=== PATIENT | female | born 1955 | race Two or more races ===

== ENCOUNTER 2020-02-28 10:03 | Outpatient (CLI) | payer OTHER | END 2020-02-28 10:05 | disposition home or self-care (01) | LOC: NUCLEAR 10:03 | PROVIDERS: ATTEND Internal Medicine | DX: I87.2 Venous insufficiency (chronic) (peripheral) (principal); I73.9 Peripheral vascular disease, unspecified ==

== ENCOUNTER 2023-08-18 09:19 | Outpatient (CLI) | payer OTHER ==
[~2023-08-18 09:19] MED LIST: AMLODIPINE BESYL5 MG; ATORVASTATIN CA10 MG; DOLOGESIC-DF 51 EACH PO; ELIQUIS5 MG; INDAPAMIDE1.25 MG
== END 2023-08-18 09:23 | disposition home or self-care (01) ==
LOC: NUCLEAR 09:19
PROVIDERS: ATTEND Internal Medicine Cardiovascular Disease
DX: I35.0 Nonrheumatic aortic (valve) stenosis (principal); I10 Essential (primary) hypertension

== ENCOUNTER 2024-02-15 08:49 | Outpatient (CLI) | payer OTHER ==
[2024-02-15 10:07] LABS: CREATININE SERUM 0.66 mg/dL (0.55-1.02)
[2024-02-28] MEDS ORDERED: LOZOL (11:16)
[2024-02-28] MEDS ORDERED: LIPITOR 10MG (11:17)
[2024-02-28] MEDS ORDERED: NORVASC5 MG (11:17)
[2024-02-28] MEDS ORDERED: KLONOPIN (11:18)
[2024-02-28] MEDS ORDERED: LEXAPRO5 MG (11:18)
== END 2024-02-15 08:55 | disposition home or self-care (01) ==
LOC: LAB 08:49
PROVIDERS: ATTEND Urology
DX: R31.1 Benign essential microscopic hematuria (principal)

== ENCOUNTER 2024-02-17 07:20 | Outpatient (CLI) | payer OTHER ==
[2024-02-28] MEDS ORDERED: LOZOL (11:16)
[2024-02-28] MEDS ORDERED: LIPITOR 10MG (11:17)
[2024-02-28] MEDS ORDERED: NORVASC5 MG (11:17)
[2024-02-28] MEDS ORDERED: LEXAPRO5 MG (11:18)
[2024-02-28] MEDS ORDERED: KLONOPIN (11:18)
== END 2024-02-17 07:23 | disposition home or self-care (01) ==
LOC: TOM 07:20
PROVIDERS: ATTEND Urology
DX: C67.9 Malignant neoplasm of bladder, unspecified (principal)
CPT/HCPCS: 74178; Q9965

== ENCOUNTER 2024-03-03 06:00 | Day surgery (SDC) | payer OTHER ==
[~2024-03-03 06:00] MED LIST changes: +KLONOPIN; +LEXAPRO5 MG; +LIPITOR 10MG; +LOZOL; +NORVASC5 MG
[2024-03-03] MEDS ORDERED: CHLORHEXIDINE GLUCONATE 120 ML BOTTLE TOP ONE (14:31)
[2024-03-03] MEDS ORDERED: GENTAMICIN SULFATE 40 MG/ML VIAL ONE (14:48)
[2024-03-03] MEDS ORDERED: MORPHINE SULFATE 4 MG/ML VIAL IV ONE (15:50)
[2024-03-03] MEDS ORDERED: PHENAZOPYRIDINE HCL 100 MG TABLET PO ONE (16:00)
[2024-03-03] MEDS ORDERED: TAMSULOSIN HCL 0.4 MG CAP PO ONE (16:00)
== END 2024-03-03 19:10 | disposition home or self-care (01) ==
LOC: CIR.AMB 06:00
PROVIDERS: ATTEND Urology
DX: C67.9 Malignant neoplasm of bladder, unspecified (principal); Z88.0 Allergy status to penicillin; I10 Essential (primary) hypertension; M19.90 Unspecified osteoarthritis, unspecified site; F41.8 Other specified anxiety disorders; Z95.0 Presence of cardiac pacemaker

== ENCOUNTER 2024-03-17 14:27 | Outpatient (CLI) | payer OTHER ==
[2024-03-17 15:29] LABS: CREATININE SERUM 0.8 mg/dL (0.55-1.02)
== END 2024-03-17 14:31 | disposition home or self-care (01) ==
LOC: LAB 14:27
PROVIDERS: ATTEND Internal Medicine
DX: I10 Essential (primary) hypertension (principal)

== ENCOUNTER 2024-03-22 09:44 | Outpatient (CLI) | payer OTHER | END 2024-03-22 09:55 | disposition home or self-care (01) | LOC: TOM 09:44 | PROVIDERS: ATTEND Internal Medicine | DX: R91.1 Solitary pulmonary nodule (principal) | CPT/HCPCS: 71270; Q9965; 71275 ==

== ENCOUNTER 2024-03-29 10:43 | Outpatient (CLI) | payer OTHER | END 2024-03-29 10:44 | disposition home or self-care (01) | LOC: NUCLEAR 10:43 | PROVIDERS: ATTEND Internal Medicine | DX: I25.10 Atherosclerotic heart disease of native coronary artery without angina pectoris (principal) ==

== ENCOUNTER 2025-01-01 07:09 | Outpatient (CLI) | payer OTHER | END 2025-01-01 07:10 | disposition home or self-care (01) | LOC: NUCLEAR 07:09 | PROVIDERS: ATTEND Internal Medicine | DX: C34.12 Malignant neoplasm of upper lobe, left bronchus or lung (principal) | CPT/HCPCS: 78815; A9552 ==

== ENCOUNTER 2025-03-16 11:04 | Outpatient (CLI) | payer OTHER | END 2025-03-16 11:10 | disposition home or self-care (01) | LOC: MRI 11:04 | DX: R91.8 Other nonspecific abnormal finding of lung field (principal); I48.0 Paroxysmal atrial fibrillation; F17.291 Nicotine dependence, other tobacco product, in remission; C34.12 Malignant neoplasm of upper lobe, left bronchus or lung | CPT/HCPCS: 70551 ==